=== PATIENT | male | born 1995 | race Caucasian/White ===

== ENCOUNTER 2021-01-19 16:11 | Emergency (ER) | payer OTHER, SELFPAY ==
[~2021-01-19] VITALS: Ht 188 cm; Wt 86.2 kg
[2021-01-19 16:20] VITALS: BP_SYST 147
--- NOTE | 2021-01-19 16:26 | NUR ---
Patient to ER bed 3 to gown for evaluation. Side rails up. Report given to JANET Sanchez.
--- NOTE | 2021-01-19 16:40 | NUR ---
ER at bedside examining patient.
--- NOTE | 2021-01-19 16:40 | NUR ---
pt. came in with concerns of walters, chills, night sweats, and pain to neck and back since last tuesday, VSS, afebrile, rates pain 3/10 in neck at this time, denies any fevers or sore throat
[2021-01-19 17:15] LABS: BASOPHILS % (AUTO) 0.8 % (0.0-2.0); EOSINOPHILS # (AUTO) 0.1 K/uL (0.0-0.4); EOSINOPHILS % (AUTO) 1.8 % (0.0-4.0); HEMATOCRIT 42.3 % (36-54); HEMOGLOBIN 14.5 g/dL (14.0-18.0); LYMPHOCYTES # (AUTO) 2.9 K/uL (1.0-5.5); LYMPHOCYTES % (AUTO) 49.1 % (20.5-51.5); MEAN CORPUSCULAR HEMOGLOBIN 32 pg (27-31); MEAN CORPUSCULAR HGB CONC 34 % (32-36); MEAN CORPUSCULAR VOLUME 93 fL (79.0-98.0); MONOCYTES # (AUTO) 0.9 K/uL (0.0-1.0); MONOCYTES % (AUTO) 15.5 % (1.7-9.3); NEUTROPHILS # (AUTO) 1.9 K/uL (1.8-7.7); NEUTROPHILS % (AUTO) 32.8 % (40.0-70.0); PLATELET COUNT (AUTO) 217 K/uL (130-430); RED BLOOD CELL COUNT(AUTO) 4.57 MIL/uL (4.2-6.2); RED CELL DISTRIBUTION WIDTH 13.1 % (9.0-15.0); WHITE BLOOD COUNT (AUTO) 5.9 K/uL (4.8-10.8)
--- NOTE | 2021-01-19 17:15 | NUR ---
Patient ambulated to radiology, accompanied by staff.
--- NOTE | 2021-01-19 17:38 | NUR ---
dinner tray given
[2021-01-19 17:43] LABS: CALCIUM 8.6 mg/dL (8.4-11.0); CREATININE 1.06 mg/dL (0.55-1.30); POTASSIUM 4.1 mmol/L (3.5-5.1)
[2021-01-19 17:48] LABS: ALBUMIN 3.7 g/dL (3.4-4.8); TOTAL BILIRUBIN 0.3 mg/dL (0.0-1.0)
[2021-01-19 17:53] LABS: INR 1.2 (0.80-1.20); PROTHROMBIN TIME 12.5 SECS (9.5-12.5)
[2021-01-19 17:57] LABS: C-REACTIVE PROTEIN QUANT 1.2 mg/dL (0-0.5)
[2021-01-19 18:00] LABS: ERYTHROCYTE SEDIMENTATION RATE 7 MM/HR (0-15)
[2021-01-19] MEDS ORDERED: IBUP-1971 PO (18:15)
[2021-01-19] MEDS ORDERED: HYDR-3917 PO (18:15)
[2021-01-19 18:27] VITALS: BP_SYST 147
--- NOTE | 2021-01-19 18:28 | NUR ---
Patient given written and verbal discharge instructions and verbalizes understanding. Dr. Lopez discussed with patient the results and treatment provided. Patient in stable condition. ID arm band removed. Rx of Motrin and [place] given. Patient educated on pain management and to follow up with PMD. Pain Scale 2. Opportunity for questions provided and answered. Medication side effect fact sheet provided.
[2021-01-19 18:34] LABS: BILIRUBIN,URINE NEGATIVE (NEGATIVE); CLARITY/URINE CLEAR (CLEAR); COLOR,URINE YELLOW (YELLOW); GLUCOSE,URINE NEGATIVE (NEGATIVE); KETONES,URINE NEGATIVE (NEGATIVE); LEUKOCYTE ESTERASE ,URINE NEGATIVE (NEGATIVE); NITRITE, URINE NEGATIVE (NEGATIVE); PROTEIN URINE NEGATIVE (NEGATIVE); UROBILINOGEN,URINE 0.2 (0.2-1.0)
[2021-01-19 18:41] LABS: BLOOD, URINE TRACE (NEGATIVE)
[2021-01-19 18:59] LABS: BACTERIA,URINE None Seen /HPF (None Seen); CALCIUM PHOSPHATE CRYSTALS,UR None Seen /HPF (None Seen); RBC,URINE 0-3 /HPF (0-3); TRICHOMONAS,URINE None Seen /HPF (None Seen); WBC,URINE NONE SEEN /HPF (0-3); YEAST,URINE None Seen /HPF (None Seen)
[2021-01-19] MEDS ORDERED: KETOROLAC TROMETHAMINE 60 MG/2 ML VIAL IM ONE (23:32)
--- NOTE | 2021-01-21 13:50 | NUR ---
Patient called for his COVID Ag and he was notified by [facility] of his "Negative" results. Patient refers he is experiencing chills, patient was advice to call PCP for follow up.
== END 2021-01-19 18:27 | disposition home or self-care (01) ==
LOC: SED 16:11
DX: R51.9 Headache, unspecified (principal); Z20.822 Contact with and (suspected) exposure to COVID-19; Z79.899 Other long term (current) drug therapy
CPT/HCPCS: 36415; 70450; 76376; 80053; 81000; 85025; 85610; 85651; 85730; 86140; 87426; 99284; J1885